=== PATIENT | female | born 1985 | race Hispanic/Latino ===

== ENCOUNTER 2021-12-11 00:12 | Emergency (ER) | payer OTHER, SELFPAY ==
--- NOTE | ~2021-12-11 | US_ITS ---
EXAMINATION: US OB <=14 wk fetus w TV DATE: 12/11/2021 02:26 INDICATION: Pelvic pain. Assess for ectopic during first trimester. TECHNIQUE: Real-time pelvic ultrasound utilizing both a transvaginal and transabdominal probe was pe rformed. The interpreting radiologist was not present for the study. COMPARISON: None. FINDINGS: The uterus measures 7.6 x 4.5 x 3.9 cm. Endometrial complex measures 11 mmin thickness with no evide nt intrauterine gestational sac. The left ovary is not visualized. The right ovary measures 3.1 x 1.6 x 1.5 with internal vascular flow with arterial waveforms on color Doppler. No abnormal adnexal mass es identified. There is no free fluid in the pelvis. IMPRESSION: 1. No intrauterine gestational sac with differential including early, failed or ectopic pregnancies. Recommend correlation with serial beta-hCG levels. Reviewed, dictated and finalized at location A.
[2021-12-11 00:20] VITALS: BP 107/64; PULSE 95; RESP 17; TEMP 36.3; O2SAT 100
[2021-12-11 01:47] LABS: Basophils Percent Auto 0.6 % (0.2-1.2); Eosinophils Absolute Auto 0.1 K/mm3 (0-0.3); Eosinophils Percent Auto 1.9 % (0-4.4); Hematocrit 41.1 % (37.0-47.0); Hemoglobin 13.9 g/dL (12.0-15.0); Immature Granulocyte Absolute 0.01 K/mm3 (0.00-0.031); Immature Granulocyte Percent A 0.2 % (0-0.5); Lymphocytes Absolute Auto 2.05 K/mm3 (0.9-3.2); Mean Corpuscular HGB Conc 33.8 g/dl (32-36); Mean Corpuscular Hemoglobin 29.7 pg (26-34); Mean Corpuscular Volume 87.8 fl (80-100); Mean Platelet Volume 9.9 fl (7.4-10.4); Monocytes Absolute Auto 0.7 K/mm3 (0.1-0.6); Monocytes Percent Auto 10.6 % (2.6-8.5); Neutrophils Absolute Auto 3.3 K/mm3 (1.3-6.7); Neutrophils Percent Auto 53.7 % (45.5-73.1); Platelet Count Result 253 k/mm3 (150-375); Red Blood Count 4.68 M/mm3 (4.2-5.4); Red Cell Distribution Width 11.6 % (11.5-14.5); White Blood Count 6.2 K/mm3 (4.5-10.0)
--- NOTE | 2021-12-11 02:47 | ED.GENADULT ---
HPI - General Adult General Chief complaint: Vaginal Bleeding Stated complaint: Vaginal bleeding, cramping, Time Seen by Provider: 12/11/21 00:41 History of Present Illness HPI narrative: Patient is a 36-year-old G4, P1 sA2 that presents the emergency department with chief complaint of vaginal bleeding. The patient reports her last menstrual period was in October reports that she had 2 positive home test and is scheduled to see an [employer]OR for care. The patient states she started having cramping and is started having spotting. Patient reports that she has not passed any tissues reports that she was used 1 pad throughout the episode so far. The patient reports no vomiting or diarrhea. Related Data Allergies Allergy/AdvReac Type Severity Reaction Status Date / Time No Known Allergies Allergy Unverified 10/17/13 17:45 Review of Systems Review of Systems: A 10 system review of systems was completed on the patient and is negative except for what is stated in the HPI. Nursing and ancillary documentation was reviewed. Exam Narrative: GENERAL: Well-appearing, well-nourished, and in no acute distress. HEAD: Normocephalic, atraumatic. EYES: PERRLA and EOMI. ENT: Nares clear, no rhinorrhea or epistaxis. Mucous membranes moist. NECK: Supple. CHEST: Clear to auscultation. No respiratory distress. HEART: Regular rate and rhythm. No murmur heard. Normal peripheral pulses. ABDOMEN: Soft, nontender, nondistended, normal active bowel sounds. EXTREMITIES: Normal range of motion. No edema. SKIN: Warm, dry, no rash. NEURO: No focal deficits. Alert and oriented x3. PSYCH: Normal mood and affect. Course Vital Signs Vital signs: Vital Signs Temperature 36.3 C L 12/11/21 00:20 Pulse Rate 95 12/11/21 00:20 Respiratory Rate 17 12/11/21 00:20 Blood Pressure 107/64 12/11/21 00:20 Pulse Oximetry 100 12/11/21 00:20 Oxygen Delivery Room Air 12/11/21 00:20 Temperature 36.3 C L 12/11/21 00:20 Pulse Rate 95 12/11/21 00:20 Respiratory Rate 17 12/11/21 00:20 Blood Pressure 107/64 12/11/21 00:20 Pulse Oximetry 100 12/11/21 00:20 Oxygen Delivery Room Air 12/11/21 00:20 Medical Decision Making Vital Signs Vital Signs: Vital Signs Temperature 36.3 C L 12/11/21 00:20 Pulse Rate 95 12/11/21 00:20 Respiratory Rate 17 12/11/21 00:20 Blood Pressure 107/64 12/11/21 00:20 Pulse Oximetry 100 12/11/21 00:20 Oxygen Delivery Room Air 12/11/21 00:20 Temperature 36.3 C L 12/11/21 00:20 Pulse Rate 95 12/11/21 00:20 Respiratory Rate 17 12/11/21 00:20 Blood Pressure 107/64 12/11/21 00:20 Pulse Oximetry 100 12/11/21 00:20 Oxygen Delivery Room Air 12/11/21 00:20 Lab Data Result diagrams: 12/11/21 01:40 Labs: Lab Results 12/11/21 12/11/21 12/11/21 Range/Units 01:40 01:40 01:40 WBC 6.2 (4.5-10.0) K/mm3 RBC 4.68 (4.2-5.4) M/mm3 Hgb 13.9 (12.0-15.0) g/dL Hct 41.1 (37.0-47.0) % MCV 87.8 (80-100) fl MCH 29.7 (26-34) pg MCHC 33.8 (32-36) g/dl RDW 11.6 (11.5-14.5) % Plt Count 253 (150-375) k/mm3 MPV 9.9 (7.4-10.4) fl Immature Gran % (Auto) 0.2 (0-0.5) % Neut % (Auto) 53.7 (45.5-73.1) % Lymph % (Auto) 33.0 (18.3-44.2) % Payne % (Auto) 10.6 H (2.6-8.5) % Eos % (Auto) 1.9 (0-4.4) % Baso % (Auto) 0.6 (0.2-1.2) % Lymph # (Auto) 2.05 (0.9-3.2) K/mm3 Payne # (Auto) 0.7 H (0.1-0.6) K/mm3 Eos # (Auto) 0.1 (0-0.3) K/mm3 Baso # (Auto) 0.0 (0.0-0.1) K/mm3 Abs Immat Gran (auto) 0.01 (0.00-0.031) K/mm3 Absolute Neuts (auto) 3.3 (1.3-6.7) K/mm3 Absolute Nucleated RBC 0.0 (0.0-0.012) K/mm3 Nucleated RBC % 0.0 (0.0-0.2) % Beta HCG, Quant 3222.90 mIU/ML Blood Type AB Positive Antibody Screen Negative Screen Not Reportable Baby's Blood Type Not Reportable Baby's LAUREN Not Reportable Do
[2021-12-11 04:36] VITALS: BP 130/78; PULSE 82; RESP 16; O2SAT 98
== END 2021-12-11 04:38 | disposition home or self-care (01) ==
PROVIDERS: Physician Assistant; Emergency Provider Emergency Medicine
DX: O20.0 Threatened abortion (principal); Z3A.00 Weeks of gestation of pregnancy not specified
CPT/HCPCS: 36415; 76801; 76817; 84702; 85025; 85461; 99284

== ENCOUNTER 2024-04-08 09:48 | Emergency (ER) | payer OTHER, SELFPAY ==
[2024-04-08 09:58] VITALS: BP 100/84; PULSE 80; RESP 16; TEMP 36.6; O2SAT 99
--- NOTE | 2024-04-08 10:05 | ED.URI ---
HPI - URI/Sore Throat General Chief Complaint: Upper Respiratory Infection Stated Complaint: Cough/Sore Throat Time Seen by Provider: 04/08/24 10:05 Source: patient, RN notes reviewed and old records reviewed Mode of arrival: ambulatory Limitations: no limitations History of Present Illness HPI Narrative: Patient presents with complaints productive cough for 5 days. She has got associated body aches, subjective fever. Has not been taking anything for her symptoms. Denies any history of asthma. Does report some wheezing. Related Data Allergies Allergy/AdvReac Type Severity Reaction Status Date / Time No Known Allergies Allergy Verified 04/08/24 10:18 Review of Systems Review of Systems: All systems reviewed & are unremarkable except as noted in HPI and below Constitutional: Constitutional: Reports no additional constitutional complaints and Reports lethargy ENT: Reports system reviewed and no additional complaints, except as documented Cardiovascular: Cardiovascular: Reports no additional cardiovascular complaints Respiratory: Respiratory: Reports no additional respiratory complaints, Reports chest congestion, Reports cough, Reports excessive phlegm production and Reports wheezing Gastrointestinal: Gastrointestinal: Reports no additional gastrointestinal complaints PMFSH Comments At the time of my signature, I reviewed and agree with the nursing past medical, surgical, social, and family history. There is no relevant family history pertinent to the patient complaint. Exam Const: General: cooperative, no acute distress, alert and awake Orientation/consciousness: oriented to person, oriented to place and oriented to time HENMT: Head: normal to inspection Mouth: Yes moist mucous membranes Resp: Effort & Inspection: normal respiratory effort and able to speak in complete sentences Auscultation: clear to auscultation bilaterally, crackles on the right at the base, no rales, no rhonchi and no wheezes Cardio: Palpation: normal PMI Rate: regular rate Rhythm: regular rhythm Heart sounds: S1 normal heart sound present and S2 normal heart sound present Neuro: General: oriented to person, oriented to place and oriented to time Cranial nerves: Yes CN's II-XII intact bilaterally Psych: Appearance: grossly normal Thought process: Normal thought process present Insight: Good insight present (Psych) Judgement: Good judgement present (Psych) Course Course Level of Care: Express Care Visit Vital Signs Vital signs: Reviewed MDM - URI/Sore Throat MDM Narrative Medical decision making narrative: History and exam consistent with atypical pneumonia this prevalent in the community right now. Treat with azithromycin, steroids, bronchodilators. Patient is nontoxic appearing and stable for discharge home. Discharge instructions reviewed with patient, as well as provided in writing per nursing staff. The instructions also include specific and strict return/GO TO THE ER as well as f/u information. All questions have been answered, and the patient deny any further questions with discharge and discharge plan. Some parts of this dictation were generated by voice recognition software and may contain typographical and/or grammatical inaccuracies. Differential Diagnosis Differential diagnosis: Likely upper respiratory infection, viral infection, influenza and pharyngitis Medical Records Attestation: I reviewed the patient's medical records. Lab Data Attestation: I reviewed the patient's lab results. Discharge Plan Discharge Clinical Impression: Atypical pneumonia Patient Disposition: Home, Self-Care Condition: Stable Instructions: Antibiotic Form, Community Acquired Pneumonia (ED) Additional Instructions: Take medications as prescribed. Follow with primary care provider. Emergency department for new or worse symptoms Patient Language: Serbian Prescriptions: New azithromycin 250 mg tablet See Rx Instructions .ROUTE .COMPLEX Qty: 6 0RF Rx Instructions: For 250 mg dose pack: take 500 mg today (day 1), then 250 mg for 4 days (days 2-5) prednisone 50 mg tablet 50 mg PO DAILY Qty: 5 0RF albuterol sulfate [Ventolin HFA] 90 mcg/actuation HFA aerosol inhaler 2 puff inhalation QID PRN (Reason: shortness of breath or wheezing) Qty: 8.5 0RF Follow-up/Referrals: PHYSICIAN,[facility]LE[facility] PRESIDENT [Primary Care Provider] - Time of Disposition: 10:47
[2024-04-08 10:23] LABS: EDCOVIDSCREEN Negative (Negative); EDINFLUASCREEN Negative (Negative); EDINFLUBSCREEN Negative (Negative)
[2024-04-08 10:24] LABS: EDSTREPNEGPOS1 Negative (Negative)
== END 2024-04-08 10:50 | disposition home or self-care (01) ==
PROVIDERS: Emergency Provider Nurse Practitioner Family
DX: J18.9 Pneumonia, unspecified organism (principal); Z20.822 Contact with and (suspected) exposure to COVID-19
CPT/HCPCS: 87081; 87426; 87804; 87880; 99213; G0463